=== PATIENT | male | born 1970 | race Caucasian/White ===

== ENCOUNTER 2019-09-16 00:04 | Emergency (ER) | payer OTHER ==
[2019-09-16 00:30] VITALS: BMI 26.4
--- NOTE | 2019-09-16 00:33 | PDOC ---
History of Present Illness - General Chief Complaint: Overdose Stated Complaint: trazedone overdose Time Seen by Provider: 09/16/19 00:31 History Source: Patient, Spouse Exam Limitations: Clinical Condition - History of Present Illness Initial Comments: 09/16/19 03:58 brought in by family s/p trazadone OD. Unclear how many milligrams--patient states he took a handful. 2700mg missing from bottles. He has a hx of "depression" required hospitalization 1 year ago. Maintained on trazadone monotherapy. Drank ETOH monday night. Woke up Monday with headache and bodyaches, which persisted through the day. Took trazadone he states to treat pain. Vomited multiple times after trazadone. 09/16/19 04:07 Is this a multiple visit Asthma Patient?: No Timing/Duration: 1 hour Severity: severe Modifying Factors: worse with: cold therapy, eating, medication Associated Symptoms: denies: chest pain, fever/chills Past History - Past Medical History Allergies/Adverse Reactions: Allergies Allergy/AdvReac Type Severity Reaction Status Date / Time No Known Allergies Allergy Verified 10/14/13 09:05 Home Medications: Ambulatory Orders Dupilumab [Dupixent] 0 mg SQ 09/16/19 Trazodone HCl 0 mg PO DAILY 09/16/19 COPD: No Other medical history: ECZEMA/DEPRESSION - Immunization History Td Vaccination: Yes Immunization Up to Date: No - Psycho Social/Smoking Cessation Hx Smoking Status: No Smoking History: Unknown if ever smoked Have you smoked in the past 12 months: No Number of Cigarettes Smoked Daily: 0 Information on smoking cessation initiated: No Hx Alcohol Use: Yes Drug/Substance Use Hx: No Substance Use Type: None Review of Systems - Review of Systems All Other Systems: Reviewed and Negative *Physical Exam - Vital Signs Last Vital Signs Temp Pulse Resp BP Pulse Ox 60 20 173/60 H 99 09/16/19 00:19 09/16/19 00:19 09/16/19 00:19 09/16/19 00:19 - Physical Exam General Appearance: Yes: Nourished, Appropriately Dressed HEENT: positive: EOMI, Normal ENT Inspection, Normal Voice Neck: negative: Lymphadenopathy (L) Respiratory/Chest: positive: Chest Tender, Lungs Clear Cardiovascular: positive: Regular Rhythm Gastrointestinal/Abdominal: negative: Tender, Distended Lymphatic: negative: Adenopathy Musculoskeletal: positive: Normal Inspection Extremity: positive: Normal Capillary Refill Neurologic: positive: Motor Strength 5/5, Other (lethargic but arousable) ED Treatment Course - LABORATORY CBC & Chemistry Diagram: 09/16/19 00:45 09/16/19 00:45 Medical Decision Making - Critical Care Time Total Critical Care Time (minutes): 30 Critical Care Statement: The care of this patient involved high complexity decision making to prevent further life threatening deterioration of the patient 's condition and/or to evaluate & treat vital organ system(s) failure or risk of failure. - Medical Decision Making 09/16/19 04:06 Presented lethargic s/p potentially large trazadone ingestion. Observed on monitor I did not administer charcoal because of lethargy Observed x 4 hours in ED. With normalization of mental status. Vital signs observed x 4 hours. Developed slight tachycardia, which resolved with IV fluid At this time he i snow medically cleared for psychiatric management Discharge - Discharge Information Problems reviewed: Yes Clinical Impression/Diagnosis: Overdose of trazodone Condition: Stable Disposition: TRANSFER ACUTE CARE/OTHER HOSP - Follow up/Referral - Patient Discharge Instructions - Post Discharge Activity
[2019-09-16 01:11] LABS: VENOUS PC02 42.7 mmHg (38-52); VENOUS PH 7.34 (7.31-7.41)
[2019-09-16 01:12] LABS: VENOUS PO2 68.3 mmHg (28-48)
[2019-09-16 01:15] LABS: BASO % 0.3 % (0-2.0); EOS % 4.7 % (0-4.5); HEMATOCRIT 43.7 % (35.4-49); HEMOGLOBIN 15.7 GM/dL (11.7-16.9); MCH 29.8 pg (25.7-33.7); MCHC 35.8 g/dl (32.0-35.9); MEAN CELL VOLUME 83.3 fl (80-96); MEAN PLT VOLUME 7.3 fl (7.5-11.1); MONO % 7.3 % (3.8-10.2); NEUT % 55.7 % (42.8-82.8); PLATELET COUNT 307 K/MM3 (134-434); RBC 5.25 M/mm3 (4.00-5.60); RDW 12.7 % (11.9-15.9); WHITE BLOOD COUNT 8.6 K/mm3 (4.0-10.0)
[2019-09-16 01:32] LABS: ALBUMIN 4.2 g/dl (3.4-5.0); ALK PHOS 114 U/L (45-117); ANION GAP 11 MMOL/L (8-16); BILIRUBIN,TOTAL 0.5 mg/dL (0.2-1); BLOOD UREA NITROGEN 6.4 mg/dL (7-18); CALCIUM 8.8 mg/dL (8.5-10.1); CHLORIDE 103 mmol/L (98-107); CO2 24 mmol/L (21-32); CREATININE 0.9 mg/dL (0.55-1.3); GLUCOSE,RANDOM 121 mg/dL (74-106); POTASSIUM 3.4 mmol/L (3.5-5.1); SGOT/AST 29 U/L (15-37); SGPT/ALT 56 U/L (13-61); SODIUM 137 mmol/L (136-145); TOT PROT 7.7 g/dl (6.4-8.2)
[2019-09-16] MEDS ORDERED: SODIUM CHLORIDE 0.9% 500 ML INFUS.BAG IV ONE (06:25)
[2019-09-16 07:34] VITALS: TEMP 98.4
[2019-09-16 10:04] VITALS: BP 117/72; PULSE 82
--- NOTE | 2019-09-16 10:04 | PDOC ---
*Physical Exam - Vital Signs Last Vital Signs Temp Pulse Resp BP Pulse Ox 98.4 F 73 14 117/63 100 09/16/19 07:33 09/16/19 09:27 09/16/19 09:27 09/16/19 09:27 09/16/19 07:33 ED Treatment Course - LABORATORY CBC & Chemistry Diagram: 09/16/19 00:45 09/16/19 00:45 - ADDITIONAL ORDERS Additional order review: Laboratory Results 09/16/19 09/16/19 09/16/19 00:45 00:45 00:45 VBG pH 7.34 POC VBG pCO2 42.7 POC VBG pO2 68.3 H VBG HCO3 22.6 L VBG O2 Sat (Shayan) 92.5 H VBG Base Excess -2.6 L Sodium 137 Potassium 3.4 L Chloride 103 Carbon Dioxide 24 Anion Gap 11 BUN 6.4 L Creatinine 0.9 Est GFR (CKD-EPI)AfAm 117.47 Est GFR (CKD-EPI)NonAf 101.35 Random Glucose 121 H Calcium 8.8 Magnesium 2.0 Total Bilirubin 0.5 AST 29 ALT 56 Alkaline Phosphatase 114 Total Protein 7.7 Albumin 4.2 Acetaminophen <1 Alcohol, Quantitative < 3.0 09/16/19 00:45 RBC 5.25 MCV 83.3 MCHC 35.8 RDW 12.7 MPV 7.3 L Neutrophils % 55.7 Lymphocytes % 32.0 Monocytes % 7.3 Eosinophils % 4.7 H Basophils % 0.3 - Medications Given in the ED: ED Medications Discontinued Medications Generic Name Dose Route Start Last Admin Trade Name Freq PRN Reason Stop Dose Admin Sodium Chloride 1,000 ml 09/16/19 06:25 09/16/19 04:30 Normal Saline - IV 09/16/19 06:26 1,000 ml ONCE ONE Administration Medical Decision Making - Medical Decision Making 09/16/19 09:[address] Roth at length, who has come to see the patient. Dr. Roth feels that the patient is not in danger of harming himself or others and can be safely discharged. Dr. Roth has spoken to the patients and his primary psychiatrist and has come up with a plan of care. Patient will be seen in Dr. Raines's office today at 2:30 pm. 09/16/19 10:04 Discharge - Discharge Information Problems reviewed: Yes Clinical Impression/Diagnosis: Overdose of trazodone Condition: Stable Disposition: HOME - Admission No - Additional Discharge Information Prescription Drug Monitoring Program (I-STOP) results: I-STOP not reviewed - Follow up/Referral - Patient Discharge Instructions Patient Printed Discharge Instructions: DI for Drug Overdose in Adults, DI for Depression -- Adult Additional Instructions: you came to the ED because you took too much of your trazedone. While we feel that you are safe to go home, we are concerned about your depression. You must follow up with Dr. Raines at 2:30 pm today. You must return to the ED for thoughts of hurting yourself of others, confusion or hallucinations, other new worsening symptoms. - Post Discharge Activity
--- NOTE | 2019-09-16 10:09 | CON.PSY ---
Psychiatry Consult Chief Complaint: 48 Junior old male seen for Psych eval fter ingesting Trzadone. Patient seen wityh with his consent. Reports of depression secondary to a Derm Injectuionj for Atiopic Dermatitis. Has been seeing a therapist and Psych for DEpression. No treports of any previous attempts. Patients reports tht she feels comfortable in caring fopr him and take him Home. Symptoms: reports: Depressed Mood - Previous Psychiatric Treatment Outpatient: Less than 6 mos ago Inpatient: One prior admission - Previous Substance Abuse Treatment Outpatient: None Inpatient: None - Reason for Previous Treatment Reason for Previous Treatment: Major Depression, Alcohol Abuse - Allergies Allergies: Allergies Allergy/AdvReac Type Severity Reaction Status Date / Time No Known Allergies Allergy Verified 10/14/13 09:05 - Current Living Status Usual Living Arrangement: With Spouse - Current Mental Status Evaluation Appearance: Well Groomed Attitude: Cooperative - Affect Affect: Constrictive Appropriateness: Appropriate to Content - Mood Mood: Euthymic - Speech/Language Expressive: Coherent - Psychomotor Activity Psychomotor Activity: Slowed - Thought Process Thought Process: Intact - Thought Content Hallucinations: Absent Delusions: Absent - Self Perception Self Perception: No Impairment - Cognition Attention: Alert Orientation: Time Memory, Immediate Recall: Intact Memory, Short Term: 3/3 Memory, Remote with Promptin/3 - Concentration Serial Sevens Intact: Yes Simple Calculations Intact: Yes - Abstraction Proverb Interpretation: Intact Judgement: Minimally Impaired - Insight Insight: Intact - Impulse Control Impulse Control: Minimally Impaired - Suicidal Ideation Suicidal Ideation: No - Homicidal Ideation Homicidal Ideation: No Assessment/Plan 1) d/c 1:1. 2) discharge when medically stable. 3) will see his pvt Psych Yanna Palma today @ 2.30 Pm./
--- NOTE | 2019-09-16 11:02 | EKG ---
Test Reason : Blood Pressure : / mmHG Vent. Rate : 094 BPM Atrial Rate : 094 BPM P-R Int : 132 ms QRS Dur : 076 ms QT Int : 398 ms P-R-T Axes : 065 012 055 degrees QTc Int : 497 ms NORMAL SINUS RHYTHM PROLONGED QT ABNORMAL ECG NO PREVIOUS ECGS AVAILABLE Confirmed by MINE HOGUE, KAMINI ([id number]) on 09/16/2019 11:01:45 AM Referred By: MD ESPINOZA Confirmed By:KAMINI BLOUNT MD
[2019-09-16 11:14] LABS: COCAINE, UR NEGATIVE ng/ml (CUTOFF=300); METHADONE, UR NEGATIVE ng/ml (CUTOFF=300); OPIATES, URI NEGATIVE ng/ml (CUTOFF=300); PHENCYCLIDINE,URINE NEGATIVE ng/ml (CUTOFF=25); URINE AMPHETAMINES NEGATIVE ng/ml (CUTOFF=500); URINE BARBITURATES NEGATIVE ng/ml (CUTOFF=200); URINE BENZODIAZEPINES NEGATIVE ng/ml (CUTOFF=200)
== END 2019-09-16 10:26 | disposition home or self-care (01) ==
LOC: FER 00:04
PROC: 3E0337Z Introduction of Electrolytic and Water Balance Substance into Peripheral Vein, Percutaneous Approach (ICD-10-PCS; principal; 2019-09-16)
DX: T43.211A Poisoning by selective serotonin and norepinephrine reuptake inhibitors, accidental (unintentional), initial encounter (principal); Y92.89 Other specified places as the place of occurrence of the external cause; R53.83 Other fatigue; F32.9 Major depressive disorder, single episode, unspecified
CPT/HCPCS: 36415; 80053; 80307; 82803; 83735; 85025; 93005; 99285-25; G0480